=== PATIENT | male | born 1955 | race American Indian/Alaskan Native ===

== ENCOUNTER 2017-01-20 10:26 | Day surgery (SDC) | payer MEDICAID ==
[2017-01-12 10:13] VITALS: BMI 22.8
[2017-01-20 10:48] LABS: ADD MANUAL DIFF? NO
[2017-01-20 10:55] LABS: BASO # 0.05 K/mm3 (0.0-2.0); BASO % 0.7 % (0.0-3.0); EOS # 0.3 (0.0-0.7); EOS % 3.4 % (1.5-5.0); GRAN # 4.37 (1.4-6.5); GRAN % 59.1 % (50.0-68.0); HEMATOCRIT 25.9 % (42.0-52.0); LYMPH # 2.2 (1.2-3.4); LYMPH % 29.3 % (22.0-35.0); MEAN CELL VOLUME 78.2 fL (80.0-105.0); MEAN CORPUSCULAR HEMOGLOBIN 26.3 pg (25.0-35.0); MEAN CORPUSCULAR HGB CONC 33.6 g/dl (31.0-37.0); MEAN PLATELET VOLUME 9.6 fl (7.0-11.0); MONO # 0.6 (0.1-0.6); MONO % 7.5 % (1.0-6.0); PLATELET COUNT 203 10^3/uL (120.0-450.0); RED CELL DISTRIBUTION WIDTH 15.5 % (11.5-14.5); WHITE BLOOD COUNT 7.4 10^3/ul (4.5-11.0)
[2017-01-20 11:04] LABS: INR 1.24 (0.93-1.08); PARTIAL THROMBOPLASTIN TIME 34.7 Seconds (23.7-30.8)
[2017-01-20 11:08] LABS: ALB/GLOB RATIO 0.9 (1.1-1.8); BILIRUBIN,TOTAL 0.5 mg/dL (0.2-1.3); CALCIUM 10.3 mg/dL (8.4-10.5); POTASSIUM 4.6 mmol/L (3.6-5.0); TOTAL PROTEIN 8.1 g/dL (5.8-8.3)
[2017-01-20] MEDS ORDERED: Lidocaine 2% Inj (20ml) ONE (12:56)
[2017-01-20] MEDS ORDERED: Propofol 10 mg/ml Inj (20 ML) ONE (12:56)
[2017-01-20] MEDS ORDERED: Sodium Chloride 0.9% 1,000 ML IV SCH (14:15)
[2017-01-20 14:59] VITALS: BP 126/59; PULSE 87; RESP 16; TEMP 97.8; O2SAT 99
--- NOTE | 2017-01-20 17:48 | CARD ---
APPROVED REPORT EKG Measurement Heart [id number] <Conclusion> Normal sinus rhythm Normal ECG
== END 2017-01-20 15:34 | disposition home or self-care (01) ==
LOC: ENDO 10:26
PROVIDERS: ATTEND Internal Medicine
DX: K29.50 Unspecified chronic gastritis without bleeding (principal); B96.81 Helicobacter pylori [H. pylori] as the cause of diseases classified elsewhere; K82.4 Cholesterolosis of gallbladder; I12.9 Hypertensive chronic kidney disease with stage 1 through stage 4 chronic kidney disease, or unspecified chronic kidney disease; N18.9 Chronic kidney disease, unspecified; Z85.46 Personal history of malignant neoplasm of prostate; Z87.19 Personal history of other diseases of the digestive system
CPT/HCPCS: 36415; 43242; 80053; 85025; 85610; 85730; 88305; 88342; 93005; J2704; J3010; J7030; J7040 ×2